=== PATIENT | male | born 1990 | race Caucasian/White ===

== ENCOUNTER 2021-01-01 07:37 | Emergency (ER) | payer OTHER ==
[~2021-01-01] VITALS: Ht 172.7 cm; Wt 67.1 kg
[2021-01-01] MEDS ORDERED: SYMBICORT 16010.2 GM IH (07:48)
[2021-01-01] MEDS ORDERED: IPRAT-ALBUT 0.5-3 ML IH (12:29)
[2021-01-01] MEDS ORDERED: SINGULAIR10 MG PO (12:29)
[2021-01-01] MEDS ORDERED: MEDROLPACK PO (12:29)
[2021-01-01] MEDS ORDERED: TESSALON PERLE100 M1 PO (12:29)
[2021-01-01] MEDS ORDERED: BUDESONIDE0.5 MG/2 M IH (12:29)
== END 2021-01-01 12:32 ==
LOC: ER 07:37
DX: J45.901 Unspecified asthma with (acute) exacerbation (principal); J06.9 Acute upper respiratory infection, unspecified; Z03.818 Encounter for observation for suspected exposure to other biological agents ruled out